=== PATIENT | male | born 1990 | race Caucasian/White ===

== ENCOUNTER 2018-06-21 19:51 | Emergency (ER) | payer OTHER ==
[2018-06-21 20:00] VITALS: BP 151/89
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
[2018-06-21] MEDS ORDERED: Lidocaine 1% with EPINEPHrine 1:100,000 20 ML MDV INJECT ONE (20:55)
--- NOTE | 2018-06-22 15:51 | CT ---
Head CT Technique: Multiple axial sections through the brain were obtained. Intravenous contrast was not utilized. Comparison: No prior intracranial imaging is available. Findings: Ventricles along with basal cisterns and sulci over the convexities are within normal limits for the patient's age. No abnormal parenchymal densities are seen. No evidence of intracranial hemorrhage. No midline shift or mass effect is seen. Bone window settings were reviewed which show no acute calvarial abnormality. Visualized sinuses show nothing acute. Impression: 1. No acute intracranial abnormality is identified. No acute calvarial fracture is seen. Diagnostic code #1 I agree with preliminary report from [facility], finalized on 06/21/18, 9:53 PM Central Time
== END 2018-06-21 21:40 | disposition home or self-care (01) ==
LOC: JD.ED 19:51
DX: S01.81XA Laceration without foreign body of other part of head, initial encounter (principal); W22.8XXA Striking against or struck by other objects, initial encounter
CPT/HCPCS: 12013; 70450; 70450-26; 99284-25

== ENCOUNTER 2021-06-12 02:58 | Emergency (ER) | payer BC, OTHER ==
[2021-06-12 03:12] VITALS: BP 148/86; PULSE 160
[2021-06-12] MEDS ORDERED: fentaNYL 100 MCG/2 ML SDV IVPUSH ONE (03:20)
[2021-06-12] MEDS ORDERED: Lidocaine 1% 20 ML MDV INJECT ONE (03:21)
[2021-06-12] MEDS ORDERED: Lidocaine 1% 50 ML MDV ONE (03:24)
[2021-06-12] MEDS ORDERED: Lactated Ringers 1,000 ML IV ONE (03:32)
[2021-06-12] MEDS ORDERED: Lidocaine 1% 50 ML MDV INJECT STA (05:08)
== END 2021-06-12 06:40 | disposition home or self-care (01) ==
LOC: JD.ED 02:58
DX: S82.301A Unspecified fracture of lower end of right tibia, initial encounter for closed fracture (principal); S82.831A Other fracture of upper and lower end of right fibula, initial encounter for closed fracture; F10.129 Alcohol abuse with intoxication, unspecified; Y90.5 Blood alcohol level of 100-119 mg/100 ml; Y04.0XXA Assault by unarmed brawl or fight, initial encounter
CPT/HCPCS: 36415; 73600; 73610; 80053; 80307; 83735; 85025; 96374; 99283; J2001; J3010; J7120

== ENCOUNTER 2021-06-13 11:24 | Day surgery (SDC) | payer BC ==
[2021-06-13] MEDS ORDERED: fentaNYL 250 MCG/5 ML SDV ONE (12:11)
[2021-06-13] MEDS ORDERED: Midazolam 1 MG/ML 2 ML SDV ONE (12:11)
[2021-06-13] MEDS ORDERED: Ondansetron 4 MG/2 ML SDV ONE (12:11)
[2021-06-13] MEDS ORDERED: Ketamine 500 mg/10 ML MDV ONE (12:11)
[2021-06-13] MEDS ORDERED: Rocuronium 50 MG/5 ML Vial ONE (12:11)
[2021-06-13] MEDS ORDERED: Lactated Ringers 1,000 ML IV SCH (12:15)
[2021-06-13] MEDS ORDERED: Propofol 200 MG/20 ML SDV ONE (12:31)
[2021-06-13] MEDS ORDERED: ceFAZolin 1 GM Vial ONE (12:32)
[2021-06-13] MEDS ORDERED: Dexmedetomidine 200 MCG/2 ML SDV ONE (12:33)
[2021-06-13] MEDS ORDERED: Bupivacaine 0.25% 10 ML SDV ONE (12:48)
[2021-06-13] MEDS ORDERED: Dexamethasone 4 MG/ML 5 ML MDV ONE (13:25)
[2021-06-13] MEDS ORDERED: HYDROmorphone 0.5 MG/0.5 ML Syringe ONE ×2 (13:35→13:37)
[2021-06-13] MEDS ORDERED: Ondansetron 4 MG/2 ML SDV IVPUSH PRN (15:06)
[2021-06-13] MEDS: HYDROmorphone 0.5 MG/0.5 ML Syringe IVPUSH PRN ×2 (15:29→15:40)
[2021-06-13] MEDS: fentaNYL 100 MCG/2 ML SDV IVPUSH PRN ×2 (15:31→15:42)
[2021-06-13] MEDS ORDERED: Cyclobenzaprine 10 MG Tab PO ONE (16:00)
[2021-06-13] MEDS ORDERED: Acetaminophen/HYDROcodone 325-5 MG Tab PO ONE (16:00)
[2021-06-13 17:12] VITALS: BP 122/80; PULSE 89
== END 2021-06-13 17:25 | disposition home or self-care (01) ==
LOC: JD.SDS 11:24 → EDSTATUS 13:15 → JD.SDS 17:25
PROVIDERS: ATTEND Orthopaedic Surgery
DX: S82.201A Unspecified fracture of shaft of right tibia, initial encounter for closed fracture (principal); Z98.890 Other specified postprocedural states; K21.9 Gastro-esophageal reflux disease without esophagitis
CPT/HCPCS: 27759; 76000; 87641; A9270; C1713; C1776; J0690; J1100; J1170; J2250; J2405; J2704; J2710; J3010; J3490; J7120; 01392

== ENCOUNTER 2023-04-30 23:49 | Emergency (ER) | payer BC ==
[2023-05-01] MEDS ORDERED: Diphtheria,Pertussis(Acell),Tetanus Vaccine 0.5 ML Syringe IM ONE (00:23)
[2023-05-01] MEDS ORDERED: Lidocaine 1% 5 ML VIAL INJECT ONE (00:27)
[2023-05-01] MEDS ORDERED: Ketorolac 30 MG/ML SDV IM ONE (00:27)
[2023-05-01 00:28] VITALS: BP 139/95; PULSE 101
[2023-05-01] MEDS ORDERED: Lidocaine 1% 10 ML MDV ONE (00:38)
[2023-05-01] MEDS ORDERED: Lidocaine 1% 10 ML MDV INJECT ONE (01:09)
== END 2023-05-01 02:05 | disposition home or self-care (01) ==
LOC: JD.ED 23:49
DX: S61.210A Laceration without foreign body of right index finger without damage to nail, initial encounter (principal); Z79.82 Long term (current) use of aspirin; W23.1XXA Caught, crushed, jammed, or pinched between stationary objects, initial encounter; Z23 Encounter for immunization
CPT/HCPCS: 12001; 73120-26-RT; 73120-RT; 90471; 90715; 96372; 99282; 99283-25; J1885; J3490

== ENCOUNTER 2024-10-08 21:38 | Emergency (ER) | payer BC ==
[2024-10-08] MEDS: Ketorolac 30 MG/ML SDV IM ONE (23:44)
[2024-10-09 07:06] VITALS: BP 118/67; PULSE 87
== END 2024-10-09 07:00 | disposition home or self-care (01) ==
LOC: JD.ED 21:38
DX: S82.141A Displaced bicondylar fracture of right tibia, initial encounter for closed fracture (principal); K21.9 Gastro-esophageal reflux disease without esophagitis; Z86.16 Personal history of COVID-19; Z79.899 Other long term (current) drug therapy; W19.XXXA Unspecified fall, initial encounter
CPT/HCPCS: 73562; 73700; 96372; 99284; A9270; J1885; 99283